=== PATIENT | male | born 1960 | race Caucasian/White ===

== ENCOUNTER 2024-12-17 15:59 | Inpatient (IN) | payer OTHER ==
[2024-12-17] VITALS (43 sets, daily range): BP systolic 135–235; BP diastolic 77–121
[~2024-12-17] VITALS: Ht 177.8 cm; Wt 84.0 kg
[2024-12-17] MEDS ORDERED: LABETALOL HCL 20 MG/ 4 ML CARTRG IV ONE (16:20)
[2024-12-17] MEDS ORDERED: SODIUM CHLORIDE 0.9% 250 ML IV ONE (16:20)
[2024-12-17] MEDS ORDERED: dilTIAZem HCL 50 MG/10 ML SDV IV ONE (16:20)
[2024-12-17] MEDS ORDERED: DILTIAZEM HCL 125 MG in SODIUM CHLORIDE 0.9% 100 ML IV ONE (16:20)
[2024-12-17 16:27] LABS: BASO% 0.3 % (0-3); EOS% 2.5 % (0-8); HEMATOCRIT 42.4 % (39.0-50.0); HEMOGLOBIN 13.7 g/dl (14.0-18.0); IMMATURE GRANULOCYTES 0.1 % (0.0-5.0); LYMPH% 14.4 % (15-41); MEAN CELL VOLUME 83.3 fL CALC (80.0-100.0); MEAN CORPUSCULAR HGB 26.9 pG CALC (26.0-32.0); MEAN CORPUSCULAR HGB CONC 32.3 g/dL CAL (32.0-36.0); MONO% 7.6 % (2-13); NEUT# 8.06 thou/uL (1.82-7.42); NEUT% 75.1 % (42-76); RED BLOOD COUNT 5.09 mill/uL (4.70-6.10); RED CELL DISTRI WIDTH 14.4 % (11.5-15.5)
[2024-12-17 16:39] LABS: ALBUMIN 4.7 g/dL (3.2-5.0); BILIRUBIN, TOTAL 0.7 mg/dL (0.2-1.3); CREATININE 1.1 mg/dL (0.7-1.3); POTASSIUM 3.4 mmol/l (3.5-5.1); TOTAL PROTEIN 9.3 g/dL (6.3-8.2)
[2024-12-17 16:44] LABS: PROTHROMBIN TIME 10.9 SECONDS (9.0-12.5)
[2024-12-17] MEDS ORDERED: METOPROLOL TARTRATE 5 MG/5 ML VIAL IV ONE ×2 (17:15)
[2024-12-17] MEDS ORDERED: SODIUM CHLORIDE 0.9% 1,000 ML IV ONE (17:15)
[2024-12-17] MEDS ORDERED: METOPROLOL TARTRATE 50 MG/TAB PO ONE (17:20)
[2024-12-17 17:26] LABS: MAGNESIUM 1.8 mg/dL (1.6-2.3)
[2024-12-17 17:44] LABS: URINE BILIRUBIN - DIPSTICK Negative (NEGATIVE); URINE BLOOD DIPSTICK Negative (NEGATIVE); URINE COLOR Yellow; URINE GLUCOSE - DIPSTICK Negative (NEGATIVE); URINE KETONE Negative (NEGATIVE); URINE LEUK ESTERASE Small (NEGATIVE); URINE NITRITE - DIPSTICK Negative (Negative); URINE PROTEIN - DIPSTICK 30 mg/dL (NEG-TRACE); URINE UROBILINOGEN - DIPSTICK 0.2 E.U./dL (0.2)
[2024-12-17 17:51] LABS: URINE RBC 0-2 RBC/hpf (0-5)
[2024-12-17] MEDS ORDERED: AZITHROMYCIN 500 MG in SODIUM CHLORIDE 0.9% 500 ML IV ONE (18:15)
[2024-12-17] MEDS ORDERED: ACETAMINOPHEN 325 MG/TAB PO PRN (18:35)
[2024-12-17] MEDS ORDERED: MAGNESIUM HYDROXIDE 30 ML UDC PO PRN (18:35)
[2024-12-17] MEDS ORDERED: Zaleplon 5 MG/CAP PO PRN (18:35)
[2024-12-17] MEDS ORDERED: CLONIDINE0.2 MG PO (18:48)
[2024-12-17] MEDS ORDERED: AMLODIPINE BESY10 MG PO (18:49)
[2024-12-17] MEDS ORDERED: HYDROCHLOROT25 MG PO (18:50)
[2024-12-17] MEDS ORDERED: LOSARTAN POTASS50 MG PO (18:50)
[2024-12-17] MEDS ORDERED: METOPROLOL TARTRATE 25 MG/TAB PO SCH (21:00)
[2024-12-17] MEDS ORDERED: ENOXAPARIN SODIUM 80 MG/0.8 ML SYR SC SCH (21:00)
[2024-12-18] VITALS (15 sets, daily range): BP systolic 138–205; BP diastolic 72–128
[2024-12-18] MEDS ORDERED: CLARIFY DOSE PO PRN ×2 (01:15→03:10)
[2024-12-18] MEDS ORDERED: amLODIPine BESYLATE 5 MG/TAB PO SCH ×2 (01:15→09:00)
[2024-12-18] MEDS ORDERED: LABETALOL HCL 20 MG/ 4 ML CARTRG IV SCH (01:30)
[2024-12-18] MEDS ORDERED: hydrALAZINE HCL 20 MG/ML VIAL(1 ML) IV PRN (03:55)
[2024-12-18] MEDS ORDERED: LABETALOL HCL 20 MG/ 4 ML CARTRG IV PRN (04:00)
[2024-12-18 08:46] LABS: CHOLESTEROL HDL RATIO 5.7 (<4.4 (CALC)); MAGNESIUM 1.7 mg/dL (1.6-2.3)
[2024-12-18] MEDS ORDERED: HUMALOG100 MG/ML SC (08:51)
[2024-12-18] MEDS ORDERED: BENADRYL ALLE12.5 M1 PO (08:53)
[2024-12-18] MEDS ORDERED: LANTUS100 UNIT SC (08:54)
[2024-12-18] MEDS ORDERED: GABAPENTIN100 MG PO (08:56)
[2024-12-18] MEDS ORDERED: CLONIDINE0.1 MG PO (08:57)
[2024-12-18] MEDS ORDERED: ASPIRIN81 MG PO (08:58)
[2024-12-18] MEDS ORDERED: METFORMIN HCL1000 MG PO (08:58)
[2024-12-18] MEDS ORDERED: HYDROCHLOROTH12.5 MG PO (08:59)
[2024-12-18] MEDS ORDERED: hydroCHLOROthiazide 25 MG/TAB PO SCH (09:00)
[2024-12-18] MEDS ORDERED: ATORVASTATIN CA40 MG PO (09:03)
[2024-12-18] MEDS ORDERED: LOSARTAN Potassium 50 MG/TAB PO SCH (10:00)
[2024-12-18] MEDS ORDERED: DEXTROSE 250 ML IV PRN ×2 (10:40)
[2024-12-18] MEDS ORDERED: INSULIN LISPRO 100 UNITS/ML ML SC SCH (11:00)
[2024-12-18] MEDS ORDERED: GABAPENTIN 300 MG/CAP PO SCH (15:00)
[2024-12-18] MEDS ORDERED: AZITHROMYCIN 500 MG in SODIUM CHLORIDE 0.9% 250 ML IV SCH (18:30)
[2024-12-18] MEDS ORDERED: INSULIN GLARGINE 100 UNITS/ML SC SCH (21:00)
[2024-12-18] MEDS ORDERED: ATORVASTATIN CALCIUM 40 MG/TAB PO SCH (21:00)
[2024-12-18] MEDS ORDERED: SODIUM CHLORIDE 0.9% 0 ML IV ONE (21:44)
[2024-12-19] VITALS (9 sets, daily range): BP systolic 108–208; BP diastolic 57–114
[2024-12-19 04:54] LABS: HEMATOCRIT 42.4 % (39.0-50.0); HEMOGLOBIN 13.6 g/dl (14.0-18.0); MEAN CELL VOLUME 83.8 fL CALC (80.0-100.0); MEAN CORPUSCULAR HGB 26.9 pG CALC (26.0-32.0); MEAN CORPUSCULAR HGB CONC 32.1 g/dL CAL (32.0-36.0); RED BLOOD COUNT 5.06 mill/uL (4.70-6.10); RED CELL DISTRI WIDTH 14.7 % (11.5-15.5)
[2024-12-19 05:10] LABS: ALBUMIN 4.3 g/dL (3.2-5.0); BILIRUBIN, TOTAL 0.8 mg/dL (0.2-1.3); MAGNESIUM 1.8 mg/dL (1.6-2.3); POTASSIUM 3.1 mmol/l (3.5-5.1); TOTAL PROTEIN 8.1 g/dL (6.3-8.2)
[2024-12-19] MEDS ORDERED: LOSARTAN Potassium 50 MG/TAB PO SCH (09:30)
[2024-12-19] MEDS ORDERED: POTASSIUM CHLORIDE 20 MEQ/TAB PO SCH (09:30)
[2024-12-19] MEDS ORDERED: cloNIDine HCL 0.1 MG/TAB PO SCH (09:30)
[2024-12-19] MEDS ORDERED: APIXABAN BASE 5 MG TAB PO SCH (21:00)
[2024-12-20] VITALS (7 sets, daily range): BP systolic 112–177; BP diastolic 51–92
[2024-12-20 05:07] LABS: HEMATOCRIT 41.1 % (39.0-50.0); MEAN CELL VOLUME 83.7 fL CALC (80.0-100.0); MEAN CORPUSCULAR HGB 26.5 pG CALC (26.0-32.0); MEAN CORPUSCULAR HGB CONC 31.6 g/dL CAL (32.0-36.0); RED BLOOD COUNT 4.91 mill/uL (4.70-6.10); RED CELL DISTRI WIDTH 14.9 % (11.5-15.5)
[2024-12-20 05:18] LABS: ALBUMIN 3.8 g/dL (3.2-5.0); BILIRUBIN, TOTAL 0.7 mg/dL (0.2-1.3); CREATININE 1.8 mg/dL (0.7-1.3); POTASSIUM 3.5 mmol/l (3.5-5.1); TOTAL PROTEIN 7.1 g/dL (6.3-8.2)
[2024-12-21] VITALS (7 sets, daily range): BP systolic 134–181; BP diastolic 75–96
[2024-12-21 04:57] LABS: BASO% 0.2 % (0-3); EOS% 7.4 % (0-8); HEMATOCRIT 39.5 % (39.0-50.0); HEMOGLOBIN 12.9 g/dl (14.0-18.0); IMMATURE GRANULOCYTES 0.1 % (0.0-5.0); LYMPH% 18.6 % (15-41); MEAN CELL VOLUME 85.9 fL CALC (80.0-100.0); MEAN CORPUSCULAR HGB CONC 32.7 g/dL CAL (32.0-36.0); MONO% 10.6 % (2-13); NEUT# 5.37 thou/uL (1.82-7.42); NEUT% 63.1 % (42-76); RED BLOOD COUNT 4.6 mill/uL (4.70-6.10); RED CELL DISTRI WIDTH 14.7 % (11.5-15.5)
[2024-12-21 05:15] LABS: ALBUMIN 3.6 g/dL (3.2-5.0); MAGNESIUM 2.2 mg/dL (1.6-2.3); POTASSIUM 3.4 mmol/l (3.5-5.1); TOTAL PROTEIN 7.1 g/dL (6.3-8.2)
[2024-12-21 05:17] LABS: BILIRUBIN, TOTAL 0.4 mg/dL (0.2-1.3)
[2024-12-21] MEDS ORDERED: SODIUM CHLORIDE 0.9% 1,000 ML IV PRN (11:05)
[2024-12-21] MEDS ORDERED: hydrALAZINE HCL 25 MG/TAB PO SCH (15:00)
[2024-12-21] MEDS ORDERED: METOPROLOL TARTRATE 50 MG/TAB PO SCH (21:00)
[2024-12-22] VITALS (8 sets, daily range): BP systolic 127–213; BP diastolic 75–134
[2024-12-22 05:33] LABS: BASO% 0.2 % (0-3); EOS% 7.1 % (0-8); HEMATOCRIT 43.1 % (39.0-50.0); HEMOGLOBIN 13.7 g/dl (14.0-18.0); IMMATURE GRANULOCYTES 0.1 % (0.0-5.0); LYMPH% 17.3 % (15-41); MEAN CELL VOLUME 86.2 fL CALC (80.0-100.0); MEAN CORPUSCULAR HGB 27.4 pG CALC (26.0-32.0); MEAN CORPUSCULAR HGB CONC 31.8 g/dL CAL (32.0-36.0); MONO% 9.6 % (2-13); NEUT# 7.1 thou/uL (1.82-7.42); NEUT% 65.7 % (42-76)
[2024-12-22 05:34] LABS: BILIRUBIN, TOTAL 0.5 mg/dL (0.2-1.3); CREATININE 1.3 mg/dL (0.7-1.3); MAGNESIUM 2.2 mg/dL (1.6-2.3); POTASSIUM 3.6 mmol/l (3.5-5.1); TOTAL PROTEIN 7.4 g/dL (6.3-8.2)
[2024-12-22] MEDS ORDERED: ELIQUIS5 MG PO (10:01)
[2024-12-22] MEDS ORDERED: LOPRESSOR 550 MG/TAB PO (10:02)
[2024-12-22] MEDS ORDERED: APRESOLINE10 MG PO (10:03)
[2024-12-22] MEDS ORDERED: DOXYCYCLINE100 MG PO (10:03)
== END 2024-12-22 13:36 | disposition designated cancer center or children's hospital (05) | DRG 308 ==
LOC: ED 15:59 → ED-I 18:10 → ED 18:40 → MS2 18:41 → ED-I 12-18 00:56 → MS2 12-18 08:30
PROVIDERS: Nurse Practitioner; Nurse Practitioner Family; ADMIT Internal Medicine; ATTEND Internal Medicine
DX: I48.91 Unspecified atrial fibrillation (principal); J18.9 Pneumonia, unspecified organism; N39.0 Urinary tract infection, site not specified; I24.89 Other forms of acute ischemic heart disease; N17.9 Acute kidney failure, unspecified; I10 Essential (primary) hypertension; I16.0 Hypertensive urgency; E11.9 Type 2 diabetes mellitus without complications; T46.5X6A Underdosing of other antihypertensive drugs, initial encounter; T38.3X6A Underdosing of insulin and oral hypoglycemic [antidiabetic] drugs, initial encounter; Z91.128 Patient's intentional underdosing of medication regimen for other reason; Z79.4 Long term (current) use of insulin; Z79.84 Long term (current) use of oral hypoglycemic drugs
CPT/HCPCS: J0360; J0456; J0696; J1650; J1815